=== PATIENT | female | born 1980 | race Caucasian/White ===

== ENCOUNTER 2017-12-07 11:02 | Emergency (ER) | payer OTHER ==
[~2017-12-07] VITALS: Ht 170.2 cm; Wt 63.0 kg
[~2017-12-07 11:02] MED LIST: ALPRAZOLAM0.5 MG PO; AMOXICILLIN875 MG PO; ATARAX,VISTARIL25 MG PO; BACTRIM,SEPT1 TABLET PO; FLEXERIL10 MG PO; FLONASE16 G1 BOTH NARES; IBUPROFEN600 MG PO; IBUPROFEN800 MG PO; KEFLEX500 MG PO; LIBRIUM25 MG PO; METHADONE H5 MG/5 ML PO; METHADONE HCL40 MG PO; METHADONE10 MG/1 M1 PO; METHADOSE10 MG PO; MOTRIN800 MG PO; MUCUS ER600 MG PO; Motrin PO; Natalcare Rx,Pramile PO; PERCOCET 5/31 TABLET PO; Percocet 5/325,Endoc PO; VICODIN,LORT1 TABLET PO; ZOFRAN ODT4 MG PO; ZOFRAN4 MG PO
[2017-12-07 13:52] VITALS: BP 117/72
== END 2017-12-07 13:53 | disposition home or self-care (01) ==
LOC: EME 11:02
PROC: 3E0T3BZ Introduction of Anesthetic Agent into Peripheral Nerves and Plexi, Percutaneous Approach (ICD-10-PCS; principal; 2017-12-07)
DX: T78.40XA Allergy, unspecified, initial encounter (principal); K02.9 Dental caries, unspecified; F41.9 Anxiety disorder, unspecified; F17.200 Nicotine dependence, unspecified, uncomplicated; Z79.891 Long term (current) use of opiate analgesic; Z88.2 Allergy status to sulfonamides; Z88.5 Allergy status to narcotic agent; Z88.8 Allergy status to other drugs, medicaments and biological substances
CPT/HCPCS: 99281; 99285; J1200

== ENCOUNTER 2017-12-09 10:08 | Emergency (ER) | payer OTHER ==
[~2017-12-09] VITALS: Ht 167.6 cm; Wt 63.8 kg
[2017-12-09] MEDS ORDERED: PERCOCET 10/1 TABLET PO (12:42)
[2017-12-09 13:05] VITALS: BP 107/72
== END 2017-12-09 13:06 | disposition home or self-care (01) ==
LOC: EME 10:08
PROC: 0C96XZZ Drainage of Lower Gingiva, External Approach (ICD-10-PCS; principal; 2017-12-09)
DX: K04.7 Periapical abscess without sinus (principal); Z79.891 Long term (current) use of opiate analgesic; Z88.5 Allergy status to narcotic agent; Z88.2 Allergy status to sulfonamides; Z88.8 Allergy status to other drugs, medicaments and biological substances
CPT/HCPCS: 99281; 99284